=== PATIENT | female | born 1990 | race Hispanic/Latino ===

== ENCOUNTER 2016-12-11 16:56 | Emergency (ER) | payer MEDICARE ==
--- NOTE | 2016-12-11 17:33 | Emergency Department Report ---
Stated Complaint: CONSTIPATION X 7DAYS/NAUSEA/ABD PAIN Time Seen by Provider: 12/11/16 17:26 - HPI History of Present Illness: This 6-year-old female with a past medical history of IBS or constipation she comes in and with the complaint of abdominal pain. Patient reports she's not had a bowel movement in 1 week. She reports that she is nauseated. She did was seen at [facility] yesterday on anything she reports that was done was given a bottle of mag citrate and was sent home. Patient reports that she's been taken MiraLAX and Dulcolax fiber chews Linesse, - Exam Vital Signs: Vital Signs 12/11/16 17:23 Temperature 98.5 F Pulse Rate 96 H Blood Pressure 129/85 O2 Sat by Pulse 97 Oximetry Physical Exam: Patient's alert and oriented in no acute discomfort. Abdominal very tender decreased bowel sounds. MSE screening note: Focused history and physical exam performed. Due to findings the following was ordered: Patient evaluated by this MSE provider. CBC CMP UA HCG amylase abdominal x-ray ordered. Patient will be evaluated in the main ER ED Disposition for MSE Condition: Stable
[2016-12-11 18:19] LABS: Bilirubin,Urine NEG (Negative); Blood,Urine NEG (Negative); Ketones,Urine TR mg/dL (Negative); Leukocyte Esterase,Urine TR (Negative); Mucus,Urine 3+ /HPF; Nitrite,Urine NEG (Negative); Urobilinogen,Urine < 2.0 mg/dL (<2.0)
[2016-12-11 18:46] LABS: Hematocrit 41.5 % (30.3-42.9); Hemoglobin 13.9 gm/dl (10.1-14.3); Mean Corpuscular HGB Conc 33 % (30-34); Mean Corpuscular Hemoglobin 31 pg (28-32); Mean Corpuscular Volume 93 fl (79-97); Platelet Count 295 K/mm3 (140-440); Red Blood Count 4.46 M/mm3 (3.65-5.03); Red Cell Distribution Width 12.8 % (13.2-15.2); White Blood Count 12.1 K/mm3 (4.5-11.0)
[2016-12-11 19:24] LABS: Alanine Aminotransferase 23 units/L (7-56); Albumin 4.5 g/dL (3.9-5); Albumin/Globulin Ratio 1.6 %; Alkaline Phosphatase 57 units/L (35-129); Amylase 17 units/L (27-131); Anion Gap 23 mmol/L; BUN/Creatinine Ratio 12.22; Bilirubin,Total 0.4 mg/dL (0.1-1.2); Blood Urea Nitrogen 11 mg/dL (7-17); Calcium 9.1 mg/dL (8.4-10.2); Carbon Dioxide 19 mmol/L (22-30); Chloride 101.7 mmol/L (98-107); Glucose 95 mg/dL (65-100); Lipase 20 units/L (13-60); Potassium 3.9 mmol/L (3.6-5.0); Sodium 140 mmol/L (137-145); Total Protein 7.4 g/dL (6.3-8.2)
[2016-12-12] MEDS ORDERED: NACL 0.9% 1000 ML 1,000 ML IV ONE ×2 (00:15→03:08)
--- NOTE | 2016-12-12 00:17 | Emergency Department Report ---
HPI - General Chief Complaint: Abdominal Pain Time Seen by Provider: 12/11/16 17:26 - HPI HPI: This is a 26-year-old female presents to the emergency department by EMS from home with the complaint of a one-week history of generalized abdominal pain and constipation. Patient says she has not had a bowel movement for the past week but also has not eaten anything for the past 2 or 3 days. She says she has tried magnesium citrate, laxity, fiber chews, MiraLAX and has not gotten any relief. She has a history of IBS, diverticulosis, cyclic vomiting syndrome, GERD, POTS. She used to go to [facility] but is switching to another primary care doctor. No recent travel or sick contacts at home. She has a past surgical history of cholecystectomy and appendectomy. She denies any fever, dysuria, vaginal bleeding or discharge, back pain. ED Past Medical Hx - Past Medical History Hx Hypertension: Yes Hx GERD: Yes Hx Arthritis: Yes (rt knee, lt ankle) Hx Seizures: Yes Hx Psychiatric Treatment: Yes (borderline personality, bipolar disorder, anxiety , PTSD) Hx Asthma: Yes Additional medical history: postoral orthostatic tachycardic syndrome, gastroparesis, irritable bowel syndrome - Surgical History Hx Cholecystectomy: Yes Hx Breast Surgery: Yes (reduction) Additional Surgical History: tonsillectomy, cyst removed. - Social History Smoking Status: Current Every Day Smoker - Medications Home Medications: Home Medications Medication Instructions Recorded Confirmed Last Taken Type Albuterol Sulfate [Ventolin HFA] 2 puff IH Q4H PRN 01/18/15 04/08/15 Unknown History Ferrous Sulfate [Feosol 325 MG tab] 325 mg PO ONCE 01/18/15 04/08/15 Unknown History Gabapentin [Neurontin] 600 mg PO TID 01/18/15 04/08/15 Unknown History Linaclotide (Nf) [Linzess (Nf)] 290 mcg PO DAILY 01/18/15 04/08/15 Unknown History Pantoprazole [Protonix TAB] 40 mg PO QDAY 01/18/15 04/08/15 Unknown History Potassium Chloride 10 meq PO QDAY 01/18/15 04/08/15 Unknown History Topiramate [Topamax] 200 mg PO BID 01/18/15 04/08/15 Unknown History Ziprasidone [Geodon] 40 mg PO BID 01/18/15 04/08/15 Unknown History clonazePAM [KlonoPIN] 1 mg PO BID 01/18/15 04/08/15 Unknown History ALBUTEROL Inhaler [ProAir HFA 2 puff IH QID PRN 04/08/15 04/08/15 Unknown History Inhaler] Fexofenadine/Pseudoephedrine 1 each PO DAILY 04/08/15 04/08/15 Unknown History [Roberta-D 24 Hour Tablet] Metoprolol [Lopressor TAB] 150 mg PO QAM 04/08/15 04/08/15 Unknown History Metoprolol [Lopressor TAB] 300 mg PO QHS 04/08/15 04/08/15 Unknown History Mometasone/Formoterol [Dulera 100 2 puff IH BID 04/08/15 04/08/15 Unknown History Mcg/5 Mcg Inhaler] Ondansetron [Zofran TAB] 4 mg PO Q4-6H PRN 04/08/15 04/08/15 Unknown History Ranitidine HCl [Zantac] 150 mg PO BID 04/08/15 04/08/15 Unknown History Temazepam [Restoril] 30 mg PO QHS 04/08/15 04/08/15 Unknown History levETIRAcetam [Keppra TAB] 1,500 mg PO BID 04/08/15 04/08/15 Unknown History medroxyPROGESTERone ACETATE 150 mg IM [id number] 04/08/15 04/08/15 Unknown History [Depo-Provera (Contraception)] traMADol [Ultram 50 MG tab] 50 mg PO Q12HR PRN 04/08/15 04/08/15 Unknown History Ondansetron [Zofran Odt] 4 mg PO Q8H PRN #12 tab.rapdis 12/12/16 Unknown Rx ED Review of Systems ROS: Stated complaint: CONSTIPATION X 7DAYS/NAUSEA/ABD PAIN Other details as noted in HPI Comment: All other systems reviewed and negative Constitutional: denies: chills, fever Eyes: denies: eye pain, eye discharge, vision change ENT: denies: ear pain, throat pain Respiratory: denies: cough, shortness of breath, wheezing Cardiovascular: denies: chest pain, palpitations Gastrointestinal: abdominal pain, nausea, constipation. denies: vomiting Genitourinary: denies: urgency, dysuria, discharge Musculoskeletal: denies: back pain, joint swelling, arthralgia Skin: denies: rash, lesions Neurological: denies: headache, weakness, paresthesias Physical Exam - Physical Exam Vital Signs: Vital Signs 12/11/16 17:23 Temperature 98.5 F Pulse Rate 96 H Blood Pressure 129/85 O2 Sat by Pulse 97 Oximetry Physical Exam: GENERAL: The patient is well-developed well-nourished. HEENT: Normocephalic. Atraumatic. Extraocular motions are intact. Patient has moist mucous membranes. Pupils equal reactive to light bilaterally. NECK: Supple. Trachea is midline. CHEST/LUNGS: Clear to auscultation. There is no respiratory distress noted. HEART/CARDIOVASCULAR: Regular. There is no tachycardia. There is no gallop rub or murmur. ABDOMEN: Abdomen is soft. Generalized tenderness to palpation of the abdomen. Patient has normal bowel sounds. There is no abdominal distention. Obese habitus. SKIN: There is no rash. There is no diaphoresis. NEURO: The patient is awake, alert, and oriented. The patient is cooperative. The patient has no focal neurologic deficits. The patient has normal speech and gait. MUSCULOSKELETAL: There is no tenderness or deformity. There is no limitation range of motion. There is no evidence of acute injury. ED Course Vital Signs 12/11/16 17:23 Temperature 98.5 F Pulse Rate 96 H Blood Pressure 129/85 O2 Sat by Pulse 97 Oximetry ED Medical Decision Making - Lab Data Result diagrams: 12/11/16 18:27 12/11/16 18:27 - Radiology Data Radiology results: image reviewed interpreted by me: Abdominal x-ray does not show any acute process. - Medical Decision Making 26 year old female presents to the emergency Department with multiple complaints but the main concern is some generalized abdominal pain, nausea and vomiting and constipation. Patient vital signs are unremarkable and stable including being afebrile. Patient's labs show a very mild leukocytosis but otherwise electrolyte abnormalities, renal insufficiency, glucose abnormalities. Patient has normal belly labs including lipase, bilirubin and LFTs. Urinalysis does not show any urinary tract infection and the patient is not . No signs of significant dehydration. Patient had some mild nausea and vomiting while in the emergency department but was given some Zofran and that has resolved. She has some generalized abdominal tenderness to palpation. Abdominal x-ray does not show any acute process including no signs of obstruction and was read by radiology as such. Patient was given a single dose of pain medication and is feeling improved. Patient has been able to keep down fluid without any return of nausea or vomiting. She already has follow-up with a resourcing consultant. Patient will be given referrals for primary care. She'll be given a prescription for Zofran ODT. We discussed increasing oral rehydration. She will return to the ER with worsening of her symptoms or any acute distress. - Differential Diagnosis IBS, cyclic vomiting, colitis, diverticulitis, food poisoning Critical Care Time: No Critical care attestation.: If time is entered above; I have spent that time in minutes in the direct care of this critically ill patient, excluding procedure time. ED Disposition Clinical Impression: History of IBS Abdominal pain Qualifiers: Abdominal location: generalized Qualified Code(s): R10.84 - Generalized abdominal pain Nausea & vomiting Qualifiers: Vomiting type: unspecified Vomiting Intractability: non-intractable Qualified Code(s): R11.2 - Nausea with vomiting, unspecified Cyclic vomiting syndrome Qualifiers: Vomiting Intractability: non-intractable Nausea presence: with nausea Qualified Code(s): G43.A0 - Cyclical vomiting, not intractable Disposition: DISCHARGED TO HOME OR SELFCARE Is pt being admited?: No Does the pt Need Aspirin: No Condition: Stable Instructions: Abdominal Pain (ED), Irritable Bowel Syndrome (ED), Acute Nausea and Vomiting (ED) Additional Instructions: Please follow-up with your resourcing consultant in the next few days. I used some referrals for local primary care physicians as well. Return to the emergency department with any acute distress. Increase your oral rehydration. Prescriptions: Ondansetron [Zofran Odt] 4 mg PO Q8H PRN #12 tab.rapdis PRN Reason: Nausea Referrals: SUSANA LECHUGA MD [Staff Physician] - 3-5 Days SOPHIE STRICKLAND MD [Staff Physician] - 3-5 Days SURJIT LAWRENCE MD [Staff Physician] - 3-5 Days [facility] [Outside] - 3-5 Days Time of Disposition: 04:50
--- NOTE | 2016-12-12 00:33 | XRay Report ---
FINAL REPORT PROCEDURE: XR ABDOMEN 2V TECHNIQUE: Abdominal series, including supine and upright AP views. HISTORY: abdominal paib with constipation COMPARISON: No prior studies are available for comparison. FINDINGS: Bowel gas pattern:Nonobstructive . Masses or calcifications:There has been previous cholecystectomy. Bony structures:No significant abnormality . Pneumoperitoneum:None . Other:No significant findings . IMPRESSION: No acute abnormality.
--- NOTE | 2016-12-12 01:19 | Admit Criteria Form ---
Admission Criteria Documentation: ABDOMINAL PAIN: OBSERVATION CARE USE THIS FORM ONLY WHEN INPATIENT ADMISSION CRITERIA ARE NOT MET. (Place X for any and all applicable criteria): Placement for observation care is indicated for a patient with ANY ONE of the following(1)(2)(3)(4)(5))(6): []I. Suspected condition requiring continued monitoring (e.g., ectopic , appendicitis) [A] []II. Undiagnosed pain after evaluation and initial treatment with ANY ONE of the following: []a) Continued pain unrelieved by symptomatic treatment []b) Patient unable to maintain hydration status []c) Concerning finding on examination (e.g., increasing tenderness, focal abdominal finding) or diagnostic testing (e.g., air fluid level on x-ray) []III. A child whose situation includes ANY ONE of the following: []a) Clinical response to outpatient therapy uncertain []b) Outpatient supervision by parents or caregivers uncertain [X]IV. Other observation care needs. (Also use General Criteria: Observation Care). The original [email or web address] content created by [employer] has been revised. The portions of the content which have been revised are identified through the use of italic text, and [facility] has neither reviewed nor approved the modified material. All other unmodified content is copyright [facility] [employer]. Please see references footnoted in the original [facility] edition 2015 Admission Criteria Met: Pending
[2016-12-12] MEDS ORDERED: ZOFRAN ONE (02:32)
[2016-12-12] MEDS ORDERED: ZOFRAN IV ONE (02:44)
[2016-12-12] MEDS ORDERED: DILAUDID IV ONE (03:08)
[2016-12-12 06:08] VITALS: BP 132/76
== END 2016-12-12 06:08 | disposition home or self-care (01) ==
LOC: ED 16:56
DX: R10.84 Generalized abdominal pain (principal); G43.A0 Cyclical vomiting, in migraine, not intractable; K58.9 Irritable bowel syndrome, unspecified; I10 Essential (primary) hypertension; K21.9 Gastro-esophageal reflux disease without esophagitis; F31.9 Bipolar disorder, unspecified; J45.909 Unspecified asthma, uncomplicated; F17.200 Nicotine dependence, unspecified, uncomplicated
CPT/HCPCS: 36415; 74020; 80053; 81001; 81025; 82150; 83690; 85027; 96367; 96374; 96375; 99284; J1170; J2405; J7030